=== PATIENT | male | born 1945 | race American Indian/Alaskan Native ===

== ENCOUNTER 2018-01-17 19:15 | Emergency (ER) | payer MEDICARE ==
[2018-01-17 19:50] VITALS: BP 128/83
--- NOTE | 2018-01-18 01:38 | Emergency Department Report ---
- General Chief Complaint: Laceration/Recheck/Suture Stated Complaint: LACERATION/LEFT HAND Time Seen by Provider: 01/18/18 01:06 Source: patient, family Mode of arrival: Ambulatory Limitations: No Limitations - History of Present Illness Initial Comments: This is a 72-year-old male who injured his left thumb he said he cut it on a cross bow at about 6 PM. He reports pain 6 out of 10 and worse with movement. No medication taken. He said he put pressure dressing to the site and came to the hospital. Denies any numbness or tingling. Denies any restriction in movement. Pain is worse with movement or rest -: This evening Extremity Location: Left: Hand (left thumb laceration and pain) Place: home Patient Tetanus UTD: No Context: accidental Associated Symptoms: pain. denies: loss of feeling/numbness, suspect foreign body present, unable to move injured part, weakness followed by dizziness, nausea/vomiting, fever Treatments Prior to Arrival: bandage - Related Data Previous Rx's Medication Instructions Recorded Last Taken Type Cephalexin [Keflex] 500 mg PO Q8HR 10 Days #30 cap 01/18/18 Unknown Rx HYDROcodone/APAP 5-325 [Richmond 1 each PO Q6HR PRN #14 tablet 01/18/18 Unknown Rx 5/325] Allergies Allergy/AdvReac Type Severity Reaction Status Date / Time piroxicam Allergy Swelling Verified 01/17/18 19:50 ED Review of Systems ROS: Stated complaint: LACERATION/LEFT HAND Other details as noted in HPI Constitutional: denies: chills, fever Eyes: denies: eye pain, vision change Respiratory: denies: cough, shortness of breath, SOB with exertion, SOB at rest , stridor, wheezing Cardiovascular: denies: chest pain, palpitations, edema, syncope Gastrointestinal: denies: abdominal pain, nausea, vomiting, diarrhea Musculoskeletal: joint swelling, arthralgia. denies: back pain, myalgia Skin: other (laceration to left thumb). denies: rash, lesions Neurological: denies: weakness, numbness, paresthesias, abnormal gait ED Past Medical Hx - Past Medical History Previous Medical History?: Yes Hx Heart Attack/AMI: Yes Additional medical history: Afib, IBS - Surgical History Past Surgical History?: Yes Additional Surgical History: colonoscopy 11/2017 WNL - Family History Family history: hypertension - Social History Smoking Status: Former Smoker Substance Use Type: Alcohol Other Social History: and lives with - Medications Home Medications: Home Medications Medication Instructions Recorded Confirmed Last Taken Type Cephalexin [Keflex] 500 mg PO Q8HR 10 Days #30 cap 01/18/18 Unknown Rx HYDROcodone/APAP 5-325 [Richmond 1 each PO Q6HR PRN #14 tablet 01/18/18 Unknown Rx 5/325] ED Physical Exam - General Limitations: No Limitations General appearance: alert, in no apparent distress - Head Head exam: Present: atraumatic, normocephalic, normal inspection - Eye Eye exam: Present: normal appearance, PERRL, EOMI Pupils: Present: normal accommodation - ENT ENT exam: Present: normal exam, normal orophraynx, mucous membranes moist - Neck Neck exam: Present: normal inspection, full ROM, other (O C-spine tenderness). Absent: tenderness, lymphadenopathy - Respiratory Respiratory exam: Present: normal lung sounds bilaterally. Absent: respiratory distress, chest wall tenderness - Cardiovascular Cardiovascular Exam: Present: regular rate, normal rhythm, normal heart sounds. Absent: systolic murmur, diastolic murmur - GI/Abdominal GI/Abdominal exam: Present: soft, normal bowel sounds. Absent: tenderness - Extremities Exam Extremities exam: Present: normal inspection, full ROM (full range of motion to all extremities and also to injured left thumb but he reports pain.), tenderness (N and S2 palpate to left thumb), normal capillary refill, joint swelling (left thumb at IP joint and proximal phalanx), other (no clubbing, cyanosis or edema to extremities. No neurovascular compromise.The pulses to all extremities. Patient with laceration to left thumb.). Absent: pedal edema , calf tenderness - Back Exam Back exam: Present: normal inspection, full ROM, other (amplitude of any difficulties) - Neurological Exam Neurological exam: Present: alert, oriented X3, normal gait, reflexes normal. Absent: motor sensory deficit - Psychiatric Psychiatric exam: Present: normal affect, normal mood - Skin Skin exam: Present: warm, dry, normal color, other (laceration). Absent: rash - Expanded Skin Exam Expanded Type of lesion: Present: laceration (left thumb) Distribution of rash: other (left thumb from IP joint to the proximal phalanx, 4 cm) Description of rash: Present: size (4 cm and irregular), tenderness, swelling. Absent: erythematous, petechial, purpuic, discharge, fluctuant, indurated ED Course Vital Signs 01/17/18 01/18/18 19:46 06:40 Temperature 98.4 F Pulse Rate 66 66 Respiratory 18 17 Rate Blood Pressure 128/83 O2 Sat by Pulse 100 97 Oximetry - Reevaluation(s) Reevaluation #1: 01/18/18 03:14 Patient received Ancef 1 g IM empirically for infection, Richmond 5/325 2 tablets by mouth for pain to left thumb, posterior [place] V cc to update tetanus. X-ray of left thumb reveal patient with fracture. Comminuted fracture of the first possible phalanx with intra-articular extension into the first interphalangeal joint with no significant angulation. Reevaluation #2: 01/18/18 06:15 Patient status post laceration repair of right thumb. He tolerated well. 6 sutures placed to right thumb, they were loosely placed due to fracture. I discussed the situation with Dr. Clark. Patient is stable. See procedure note for splinting - Laceration /Wound Repair Left Lateral Proximal Dorsal Finger Wound Location: upper extremity (right thumb) Wound Length (cm): 4 Wound's Depth, Shape: into muscle, irregular, contused tissue Wound Explored: no foreign body removed Irrigated w/ Saline (ccs): 500 Betadine Prep?: Yes Anesthesia: 1% Lidocaine Volume Anesthetic (ccs): 2 Wound Debrided: moderate Wound Repaired With: sutures Suture Size/Type: 3:0 (Ethilon) Number of Sutures: 6 (loosely placed) Layer Closure?: No Sterile Dressing Applied?: Yes Progress: Velcro thumb spica placed to left hand due to fracture. Patient with good neurovascular check after splint placement. - Orthopedic Splinting/Casting Injury #1 Side: left Upper Extremity Injury Location: finger (left thumb) Upper Extremity Immobilizer: thumb spica (Velcro) Additional Comments: Patient will good neurovascular check status post splint placement. Good color , sensation, movement and temperature to fingers. ED Medical Decision Making - Radiology Data Radiology results: report reviewed Radiology report faxed over from areas and radiology's dictated patient with comminuted fracture of the first proximal phalanx with intra-articular extension into the first in turgor filling she'll joint. No significant angulation. Mild degenerative changes of the first carpal metacarpal joint and triscarpe joint - Medical Decision Making This is a 72-year-old male here reported that she injured his left thumb with crossbow. He has laceration and deformity to his thumb. He reports he is having pain and swelling with bleeding and reports that he stop the bleeding with pressure dressing. He can what his family for treatment. This patient was seen by myself and examined and she has moderate swelling to left thumb and pain on range of motion but no restriction in movement, no erythema, positive laceration ,contusion . X-ray of left hand dictated by radiologist and revealed comminuted fracture of the first proximal phalanx with intra-articular extension into the first inter-phalangeal joint. No significant angulation. There is also mention of degenerative changes. X-ray reviewed by myself. I discussed case with Dr. Clark. The patient was updated x-ray results and he voiced understanding. suture loosely placed and to place a thumb spica splint. Patient pain is better with Richmond. He voiced understanding xray results. A/P 1: Open Fracture left thumb: Thumb spical splint. See procedure note. Ancef 1 gram im given. referral to Orthopedist. D/C home on keflex 2: Left Thumb Laceration- very loose superficial Suture. see procedure notes for details. Return in 10 days for suture removal 3: Left Thumb Pain- Richmond 5/325 mg po . Patient was sent home on Richmond Prescription given for Motrin 600 mg when necessary Patient educated on medication, Rice therapy, diagnosis, x-ray reports, splint and treatment plan . Patient discharged home in stable condition to follow up with orthopedic doctor in 2-3 days and/or to return to the emergency room if, he develops redness, swelling, drainage or increased pain radiation of pain to left upper extremity, there are in the skin, fever or chills. . His VSS afeb. Patient is nontoxic in appearance and he was discharged home a prescription for Richmond and Keflex. Critical care attestation.: If time is entered above; I have spent that time in minutes in the direct care of this critically ill patient, excluding procedure time. ED Disposition Clinical Impression: Pain of left thumb Fracture of thumb, left, open Qualifiers: Encounter type: initial encounter Phalanx: proximal Fracture alignment: nondisplaced Qualified Code(s): S62.515B - Nondisplaced fracture of proximal phalanx of left thumb, initial encounter for open fracture Laceration of left thumb without foreign body without damage to nail Qualifiers: Encounter type: initial encounter Qualified Code(s): S61.012A - Laceration without foreign body of left thumb without damage to nail, initial encounter Disposition: DC- TO HOME OR SELFCARE Is pt being admited?: No Does the pt Need Aspirin: No Condition: Stable Instructions: Suture Care (ED), Splint Care (ED), Finger Laceration (ED), Thumb Fracture (ED) Additional Instructions: Please take antibiotic as prescribed Please do not drive or operate heavy machinery while taking Richmond as this medication causes drowsiness Please follow up with Dr. Kennedy who is orthopedist call this morning to schedule an appointment Keep affected area clean and dry He may return to emergency room and 10 days to have stitches removed from your left thumb If you develop, redness, swelling, restriction in movement, drainage to left thumb fever and/or chills, denies return to the emergency room immediately otherwise follow up with her primary care doctor and Dr. Kennedy orthopedist Prescriptions: Cephalexin [Keflex] 500 mg PO Q8HR 10 Days #30 cap HYDROcodone/APAP 5-325 [Richmond 5/325] 1 each PO Q6HR PRN #14 tablet PRN Reason: moderate to severe pain Referrals: DIANE RANDOLPH MD [Primary Care Provider] - 01/20/18 ROCK KENNEDY MD [Staff Physician] - 01/20/18 Forms: Accompanied Note
[2018-01-18] MEDS ORDERED: ANCEF IM ONE (01:39)
[2018-01-18] MEDS ORDERED: NORCO 5/325 PO ONE (01:39)
[2018-01-18] MEDS ORDERED: XYLOCAINE 1% MPF 5 mL INFILTRATI ONE (01:39)
[2018-01-18] MEDS ORDERED: BOOSTRIX IM ONE (01:39)
[2018-01-18] MEDS ORDERED: NACL 0.9% IR ONE (01:40)
--- NOTE | 2018-01-18 10:30 | XRay Report ---
FINAL REPORT EXAM: XRAY FINGER LEFT HISTORY: CROSS BOW ACCIDENT SLICED THROUGH LT THUMB COMPARISON: None available. FINDINGS: Three views of the left thumb obtained. There is a comminuted fracture of the 1st proximal phalanx with intra-articular extension into the 1st interphalangeal joint. Remaining bony structures are intact. Mild narrowing hypertrophic spurring of the interphalangeal joints and 1st MCP joint. Mild degenerative changes of the 1st carpometacarpal joint and triscaphe joint. IMPRESSION: Comminuted fracture of the 1st proximal phalanx with intra-articular extension into the 1st interphalangeal joint. No significant angulation.
== END 2018-01-18 06:40 | disposition home or self-care (01) ==
LOC: ED 19:15
DX: S62.515B Nondisplaced fracture of proximal phalanx of left thumb, initial encounter for open fracture (principal); S61.012A Laceration without foreign body of left thumb without damage to nail, initial encounter; I25.2 Old myocardial infarction; I48.91 Unspecified atrial fibrillation; K58.8 Other irritable bowel syndrome; Z87.891 Personal history of nicotine dependence; Z88.8 Allergy status to other drugs, medicaments and biological substances; W27.8XXA Contact with other nonpowered hand tool, initial encounter; Y93.89 Activity, other specified; Y99.8 Other external cause status; Y92.89 Other specified places as the place of occurrence of the external cause
CPT/HCPCS: 12002; 29125; 73140; 90471; 90715; 96372; 99284; J0690

== ENCOUNTER 2020-09-15 14:17 | Outpatient (CLI) | payer MEDICARE | END 2020-09-15 14:18 | disposition home or self-care (01) | LOC: SLR 14:17 | PROVIDERS: ATTEND Otolaryngology | DX: G47.33 Obstructive sleep apnea (adult) (pediatric) (principal) | CPT/HCPCS: 95811 ==